=== PATIENT | female | born 2000 | race Caucasian/White ===

== ENCOUNTER 2018-01-19 11:09 | Emergency (ER) | payer BC, MEDICAID ==
[2018-01-19 11:09] VITALS: BMI 29.9
[2018-01-19 11:38] VITALS: RESP 18
--- NOTE | 2018-01-19 12:30 | RAD ---
Date of service: 01/19/2018 PROCEDURE: Radiographs of the Left Shoulder HISTORY: r/o fx COMPARISON: No prior. FINDINGS: BONES: Normal. No fracture. JOINTS: Normal. Glenohumeral and acromioclavicular joints preserved. No osteoarthritis. SOFT TISSUES: Normal. OTHER FINDINGS: None. IMPRESSION: No evidence of acute fracture or dislocation.
--- NOTE | 2018-01-19 12:40 | ED PDOC ---
Arrival/HPI - General Chief Complaint: Upper Extremity Problem/Injury Time Seen by Provider: 01/19/18 11:45 Historian: Patient - History of Present Illness Narrative History of Present Illness (Text): 01/19/18 12:21 A 17 year old female, with no significant past medical history, presents to the emergency department complaining of left shoulder pain for 1 week. 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 Has taken no pain medications for relief. Patient denies any trauma, fever, cough, chest pain, or any other complaints at this time. Patient is right-handed. No PMD Past Medical History - Provider Review Nursing Documentation Reviewed: Yes - Past History Past History: No Previous - Tetanus Immunization Tetanus Immunization: Up to Date - Cardiac Hx Cardiac Disorders: No - Pulmonary Hx Respiratory Disorders: No - Neurological Hx Neurological Disorder: No - HEENT Hx HEENT Disorder: No - Renal Hx Renal Disorder: No - Endocrine/Metabolic Hx Endocrine Disorders: No - Hematological/Oncological Hx Blood Disorders: No - Integumentary Hx Dermatological Disorder: No - Musculoskeletal/Rheumatological Hx Musculoskeletal Disorders: No - Gastrointestinal Hx Gastrointestinal Disorders: No - Genitourinary/Gynecological Hx Genitourinary Disorders: No - Psychiatric Hx Psychophysiologic Disorder: No Hx Substance Use: No - Past Surgical History Past Surgical History: No Previous - Surgical History Other/Comment: 2017 - Anesthesia Hx Anesthesia: Yes Hx Anesthesia Reactions: No Family/Social History - Physician Review Nursing Documentation Reviewed: Yes Family/Social History: No Known Family HX Smoking Status: Never Smoked Hx Alcohol Use: No Hx Substance Use: No Allergies/Home Meds Allergies/Adverse Reactions: Allergies No Known Allergies Allergy (Verified 08/03/13 17:46) Review of Systems - Physician Review All systems were reviewed & negative as marked: Yes - Review of Systems Constitutional: absent: Fevers, Other (no trauma) Respiratory: absent: Cough Cardiovascular: absent: Chest Pain Musculoskeletal: Other (left shoulder pain) Physical Exam Vital Signs Reviewed: Yes Vital Signs Temp Pulse Resp BP Pulse Ox 01/19/18 12:50 98.2 F 62 18 125/76 99 01/19/18 11:20 98.0 F 70 18 127/74 98 Temperature: Afebrile Blood Pressure: Normal Pulse: Regular Respiratory Rate: Normal Appearance: Positive for: Well-Appearing, Non-Toxic, Comfortable Pain Distress: None Mental Status: Positive for: Alert and Oriented X 3 - Systems Exam Head: Present: Atraumatic, Normocephalic Pupils: Present: PERRL Extroacular Muscles: Present: EOMI Conjunctiva: Present: Normal Mouth: Present: Moist Mucous Membranes Neck: Present: Normal Range of Motion Respiratory/Chest: Present: Clear to Auscultation, Good Air Exchange. No: Respiratory Distress, Accessory Muscle Use Cardiovascular: Present: Regular Rate and Rhythm, Normal S1, S2. No: Murmurs Abdomen: No: Tenderness, Distention, Peritoneal Signs Back: Present: Normal Inspection Upper Extremity: Present: Tenderness (mild tenderness to left AC joint) Lower Extremity: Present: Normal Inspection. No: Edema Neurological: Present: GCS=15, CN II-XII Intact, Speech Normal Skin: Present: Warm, Dry, Normal Color. No: Rashes Psychiatric: Present: Alert, Oriented x 3, Normal Insight, Normal Concentration Medical Decision Making ED Course and Treatment: 01/19/18 12:24 Impression: 17 year old female with intermittent left shoulder pain. Physical exam shows mild tenderness to left AC joint; no other acute findings on physical examination. Plan: -- Left Shoulder X-Ray -- Reassess and disposition Progress Notes: 01/19/2018 12:28 Left Shoulder X-ray IMPRESSION: No evidence of acute fracture or dislocation. Dictator: Surendra Frost MD - RAD Interpretation Radiology Orders: 01/19/18 11:45 SHOULDER LEFT [RAD] Stat - Scribe Statement The provider has reviewed the documentation as recorded by the Jtibkaren Huang Provider Scribe Provider Scribe Attestation: All medical record entries made by the Scribe were at my direction and personally dictated by me. I have reviewed the chart and agree that the record accurately reflects my personal performance of the history, physical exam, medical decision making, and the department course for this patient. I have also personally directed, reviewed, and agree with the discharge instructions and disposition. Disposition/Present on Arrival - Present on Arrival Any Indicators Present on Arrival: No History of DVT/PE: No History of Uncontrolled Diabetes: No Urinary Catheter: No History of Decub. Ulcer: No History Surgical Site Infection Following: None - Disposition Have Diagnosis and Disposition been Completed?: Yes Diagnosis: Shoulder sprain Disposition: HOME/ ROUTINE Disposition Time: 12:25 Condition: GOOD Discharge Instructions (ExitCare): Shoulder Sprain (DC) Additional Instructions: MERISSA GARCES, thank you for letting us take care of you today. Your provider was Ji Chavis DO and you were treated for SHOULDER PAIN. The emergency medical care you received today was directed at your acute symptoms. If you were prescribed any medication, please fill it and take as directed. It may take several days for your symptoms to resolve. Return to the Emergency Department if your symptoms worsen, do not improve, or if you have any other problems. Please contact your doctor or call one of the physicians/clinics you have been referred to that are listed on the Patient Visit Information form that is included in your discharge packet. Bring any paperwork you were given at discharge with you along with any medications you are taking to your follow up visit. Our treatment cannot replace ongoing medical care by a primary care provider outside of the emergency department. Thank you for allowing the [facility] team to be part of your care today. Follow up with your primary care doctor in 3-5 days for re-evaluation and further management. Prescriptions: Ibuprofen [Motrin] 600 mg PO Q6 PRN #20 tab PRN Reason: Pain, Moderate (4-7) Referrals: [facility] Req, [Primary Care Provider] - Follow up with primary Forms: [employer] (E[place]ian)
[2018-01-19 12:53] VITALS: BP 125/76; PULSE 62; TEMP 98.2; O2SAT 99
== END 2018-01-19 12:53 | disposition home or self-care (01) ==
LOC: ED 11:09
DX: S43.402A Unspecified sprain of left shoulder joint, initial encounter (principal); X58.XXXA Exposure to other specified factors, initial encounter